=== PATIENT | female | born 1975 | race Caucasian/White ===

== ENCOUNTER → 2020-03-23 10:47 | Outpatient (BNVA) | payer OTHER, SELFPAY | PROVIDERS: PCP Internal Medicine; Referring Provider Internal Medicine; Visit Provider Internal Medicine Gastroenterology | DX: D50.0 Iron deficiency anemia secondary to blood loss (chronic) (principal); K92.2 Gastrointestinal hemorrhage, unspecified | CPT/HCPCS: 99203 ==

== ENCOUNTER 2020-05-16 12:17 | Outpatient (REF) | payer OTHER, MEDICAID, SELFPAY | END 2020-05-16 12:18 | disposition home or self-care (01) | LOC: HO.LAB 12:17 | PROVIDERS: Visit Provider Internal Medicine | DX: Z20.828 Contact with and (suspected) exposure to other viral communicable diseases (principal) | CPT/HCPCS: C9803; U0003 ==

== ENCOUNTER 2020-05-28 10:35 | Day surgery (SDC) | payer OTHER, SELFPAY ==
[2020-05-21 20:21] VITALS: BMI 33.0
--- NOTE | 2020-05-25 13:56 | HO.ANESPROP2 ---
Documented by User: Sloane Hutchins 05/25/20 13:57 HPI - Anesthesia Eval Consult details Narrative: 44yo F for Upper Endoscopy and Colonoscopy PMFSH Past Medical History Medical History (Updated 05/25/20 @ 13:56 by Sloane Hutchins) Anemia Anxiety Depression History of diabetes mellitus, type II History of kidney stones Moderate asthma Sleep apnea with use of continuous positive airway pressure (CPAP) Family History Family History Father No problems noted. Mother No problems noted. Surgical History Surgical History H/O colposcopy with cervical biopsy History of History of colonoscopy Hx of endoscopy Hx of gastric bypass Social History Social History (Updated 03/23/20 @ 11:03 by Shantelle Herrera MA) Alcohol intake: never Smoking Status: Current every day smoker Cigarettes Per Day: 5 Patient Interested in Nicotine Replacement: No Use of substances other than those prescribed or required for medical reasons: No Advance Directives: Yes Advance Directives Information Provided: Yes Advance Directives on File: No (will bring copy) Advance Directives Date on File: 11/07/19 Meds Allergies Allergy/AdvReac Type Severity Reaction Status Date / Time No Known Allergies Allergy Verified 05/21/20 20:29 Home Medications Medication Instructions Recorded Confirmed Type hydroxyzine HCl 25 mg tablet 50 mg PO BEDTIME PRN 04/26/20 05/21/20 History sertraline 100 mg tablet 100 mg PO DAILY 04/26/20 05/21/20 History Exam Exam Date and Time: May 25, 2020 1356 Height,Weight and Vital Signs: Height 5 ft Weight 76.657 kg Pertinent Lab Results Pertinent Lab Results: Laboratory Tests 02/01/20 02/01/20 09:45 09:45 WBC 7.7 Hgb 8.5 L Hct 30.8 L Plt Count 262 Sodium 138 Potassium 4.6 Chloride 105 BUN 13 Creatinine 0.75 Assessment and Plan Assessment Anesthesia Assessment: Chart Reviewed Documented by User: Sanjana Wilson 05/28/20 11:07 PMFSH Past Medical History Medical History (Updated 05/25/20 @ 13:56 by Sloane Hutchins) Anemia Anxiety Depression History of diabetes mellitus, type II History of kidney stones Moderate asthma Sleep apnea with use of continuous positive airway pressure (CPAP) Family History Family History Father No problems noted. Mother No problems noted. Surgical History Surgical History H/O colposcopy with cervical biopsy History of History of colonoscopy Hx of endoscopy Hx of gastric bypass Social History Social History (Updated 03/23/20 @ 11:03 by Shantelle Herrera MA) Alcohol intake: never Smoking Status: Current every day smoker Cigarettes Per Day: 5 Patient Interested in Nicotine Replacement: No Use of substances other than those prescribed or required for medical reasons: No Advance Directives: Yes Advance Directives Information Provided: Yes Advance Directives on File: No (will bring copy) Advance Directives Date on File: 11/07/19 Meds Allergies Allergy/AdvReac Type Severity Reaction Status Date / Time No Known Allergies Allergy Verified 05/21/20 20:29 Home Medications Medication Instructions Recorded Confirmed Type hydroxyzine HCl 25 mg tablet 50 mg PO BEDTIME PRN 04/26/20 05/21/20 History sertraline 100 mg tablet 100 mg PO DAILY 04/26/20 05/21/20 History Exam Airway Mallampati Class: II (Kadeem ring present on left requests toleave in aware of possible trama) TM Dist: >3cm Neck ROM: Full Heart: RRR Lungs: CTA Bl Assessment and Plan Assessment Anesthesia Assessment: Anesthesia Plan Discussed and Chart Reviewed Final Anesthetic Review NPO: Yes ASA Class: II Final Preanesthetic Review: Meds/Allgs Chart Reviewed and Consent Obtained/Reviewed Patient Risk: Intermediate Procedure Risk: Intermediate Anesthetic Plan Anesthetic Plan: MAC: Disposition: Standard PACU
[2020-05-28 11:01] VITALS: BP 133/86; PULSE 81; RESP 16; TEMP 36.3; O2SAT 98
[2020-05-28 11:01] LABS: UPreg QC Valid YES; Urine Pregnancy NEGATIVE (NEGATIVE)
[2020-05-28] MEDS: Lactated Ringers 1,000 ML 100 ML IVCONT (11:03)
--- NOTE | 2020-05-28 11:10 | MHC.SHP ---
Pre-Procedural Eval Section B Chief Complaint: Iron Deficeiency anemia, Altered bowel habits Relevant Family History (Specify if Yes): No Relevant Social History: Tobacco Use Present Medications: see Short Stay Collaborative assessment Medical History: Significant History (Anemia Anxiety Depression History of diabetes mellitus, type II History of kidney stones Moderate asthma Sleep apnea with use of continuous positive airway pressure (CPAP)) History of Previous Operations: Relevant previous surgery/procedure and date(s) (gastric bypass) Allergies: Allergies Allergy/AdvReac Type Severity Reaction Status Date / Time No Known Allergies Allergy Verified 05/21/20 20:29 Review of Systems Sugical H&P ROS: Negative: Constitution, Cardiovascular, Respiratory, Neurological, Psychiatric, Hem-Onc, Allergic/Immunologic, Gastrointestinal, Genitourinary, Musculoskeletal, Integumentary, Endocrine and Eyes/Ears/Nose/Throat Exam Surgical H&P Exam: Normal: HEENT, Normal: Heart, Normal: Lungs, Normal: Extremities, Normal: Abdomen, Normal: Skin and Normal: Neurological Plan Diagnosis/Plan: Unchanged I have reviewed the history and physical and performed a pertinent physical examination on my patient. No changes have occurred unless specified.
--- NOTE | 2020-05-28 11:11 | PM.OP ---
Brief Operative Note Date of Service: 05/28/20 Procedure: Operative Information Procedure Description: EGD, Colonoscopy FLEXIBLE TRANSORAL UPPER GASTROINTESTINAL ENDOSCOPY AND COLONOSCOPY PROCEDURE NOTE UPPER ENDOSCOPY Consent: Indications for the procedure and potential complications of bleeding, perforation, reaction to medications and missed diagnosis were discussed with the patient and informed consent was obtained. Instrument: Olympus GIF H 190 J mid size upper endoscope Monitoring: Vital signs and clinical assessment, continuous EKG monitoring, Pulse oximetry, Carbon Dioxide monitoring and blood pressure monitoring were done throughout the procedure. Procedure: The patient was placed in the left lateral decubitis position and pre-procedure medications were administered and a bite block was placed. The endoscope was inserted into the mouth and advanced under direct vision to the third part of duodenum. A careful inspection was made as the upper endoscope was withdrawn including a retroflexed examination of the proximal stomach; Findings and interventions are described below. Findings: Larynx:normal Esophagus: GE junction at 35 cm, diaphragm hiatus at 37 cm, consistent with 2 cm sliding hiatal hernia, LA grade A esophagitis noted at GEJ Stomach pouch: Normal mucosa. Biopsies were obtained. Grade 2 flap valve on retroflexed examination of the cardia. Jejunum: abnormal gastro jejunal anastomosis with deep ulcer about 1 cm noted with surrounding induration and erythema and friability, no active bleeding or vessel seen, bx taken from jejunum Intervention: Biopsies as noted above COLONOSCOPY Instrument: Olympus variable stiffness pediatric scope 190L Colonoscopy Monitoring: Vital signs and clinical assessment, continuous EKG monitoring, Pulse oximetry, Carbon Dioxide monitoring and blood pressure monitoring were done throughout the procedure. Colon withdrawal time was 12 minutes. Procedure: The patient was placed in the left lateral decubitis position and pre-procedure medications were administered. After a digital rectal examination of the ano-rectum, the video colonoscope was inserted into the rectum and advanced through the colon to the cecum/TI. The colonoscope was slowly withdrawn in a retrograde panoramic fashion and the colon mucosa was carefully examined including a retroflexed view of the rectum. Findings and interventions are described below. Procedure Difficulty:easy Findings: Terminal Ileum-normal Cecum:normal Ascending Colon: normal Transverse Colon -normal Descending Colon:normal Sigmoid Colon: normal Rectum: Retroflexion with small internal internal hemorrhoids, grade I Anorectum - normal Colon preparation: Pixley Bowel Preparation Scale Right colon; 1 Transverse colon: 2 Left colon; 1 (0 = Unprepared colon segment with mucosa not seen due to solid stool that cannot be cleared. 1 = Portion of mucosa of the colon segment seen, but other areas of the colon segment not well seen due to staining, residual stool and/or opaque liquid. 2 = Minor amount of residual staining, small fragments of stool and/or opaque liquid, but mucosa of colon segment seen well. 3 = Entire mucosa of colon segment seen well with no residual staining, small fragments of stool or opaque liquid) Impression and Post Procedure Diagnosis: Endoscopy Findings: marginal ulcer esophagitis hiatal hernia Colonoscopy Findings: internal hemorrhoids Plan: Await Pathology results Repeat Colonoscopy in 2 years or earlier if clinically indicated High fiber diet leaflet avoid straining at stool, epsom salts and sitz bath, anusol supps or cream prn high dose PPI omeprazoel capsule 40 mg BID--open capsule and mix with apple sauce also carafate needs to stop smoking, check NSAID hx Above findings were reviewed with the patient and relevant handouts were provided if indicated. Surgeon: Maddison Maurice MD Estimated blood loss (mL): 0
[2020-05-28 11:44] VITALS: BP 84/41; PULSE 63; RESP 24; TEMP 36.5; O2SAT 100
[2020-05-28 11:49] VITALS: BP 100/66; PULSE 71; RESP 17; O2SAT 100
[2020-05-28 11:59] VITALS: BP 108/67; PULSE 60; RESP 20; TEMP 36.5; O2SAT 99
== END 2020-05-28 13:10 | disposition home or self-care (01) ==
PROVIDERS: Nurse Practitioner; Visit Provider Internal Medicine Gastroenterology
PROC: (CPT 45378; principal; 2020-05-28 12:00)
DX: D50.0 Iron deficiency anemia secondary to blood loss (chronic) (principal); R19.4 Change in bowel habit; K64.0 First degree hemorrhoids; K28.9 Gastrojejunal ulcer, unspecified as acute or chronic, without hemorrhage or perforation; K44.9 Diaphragmatic hernia without obstruction or gangrene; K20.90 Esophagitis, unspecified without bleeding; J45.909 Unspecified asthma, uncomplicated; F32.9 Major depressive disorder, single episode, unspecified; E11.9 Type 2 diabetes mellitus without complications; G47.33 Obstructive sleep apnea (adult) (pediatric); Z99.89 Dependence on other enabling machines and devices; Z98.84 Bariatric surgery status; Z98.0 Intestinal bypass and anastomosis status; F17.210 Nicotine dependence, cigarettes, uncomplicated
CPT/HCPCS: 45378; 43239; 81025; 88305; 88342

== ENCOUNTER 2020-06-15 08:56 | Outpatient (REF) | payer OTHER, SELFPAY ==
[2020-06-15 11:00] LABS: Hematocrit 27.5 % (37-47); Mean Corpuscular HGB Conc 25.8 g/dl (31.0-35.0); Mean Corpuscular Hemoglobin 14.2 pg (27.0-33.0); PLT CLUMP 1; Red Blood Count 4.99 X10*6/uL (4.20-5.50); Red Cell Distribution Width 23.7 % (11.0-16.0)
[2020-06-15 11:19] LABS: Alanine Aminotransferase 14 U/L (0-31); Albumin Level 4.4 g/dL (3.5-5.0); Alkaline Phosphatase 86 U/L (39-117); Anion Gap 11 (12-20); Aspartate Amino Transferase 15 U/L (5-31); Bilirubin Total 0.4 mg/dL (0.0-1.0); Blood Urea Nitrogen 13 mg/dL (9-16); Calcium 8.6 mg/dL (8.4-10.2); Carbon Dioxide 27 mmol/L (22-29); Chloride 103 mmol/L (96-108); Estimated Glomerular Filt Rate > 60; Glucose Random 90 mg/dL (60-115); Potassium 4.4 mmol/l (3.3-5.1); Sodium 137 mmol/L (135-145)
[2020-06-15 11:37] LABS: Mean Corpuscular Volume 55.1 fL (80-98)
[2020-06-15 11:38] LABS: PLT ABN DIST 1; Platelet Count 316 X10*3/uL (160-400); White Blood Count 8.8 X10*3/uL (4.8-10.8)
[2020-06-15 11:40] LABS: Hemoglobin 7.1 g/dl (12.0-16.0)
[2020-06-15 11:48] LABS: Vitamin B12 388 pg/mL (200-900)
[2020-06-15 13:20] LABS: Ferritin 1 ng/mL (10-250)
[2020-06-18 01:02] LABS: Transglutaminase Ab IgG 1 U/mL; Transglutaminase IgA 1 U/mL
[2020-06-18 13:37] LABS: Transferrin 434 mg/dL (188-341)
== END 2020-06-15 08:57 | disposition home or self-care (01) ==
LOC: HO.LAB 08:56
PROVIDERS: PCP Internal Medicine; Visit Provider Internal Medicine Gastroenterology
DX: D50.0 Iron deficiency anemia secondary to blood loss (chronic) (principal)
CPT/HCPCS: 36415; 80053; 82607; 82728; 83516; 84466; 85027; 85060; 99212

== ENCOUNTER 2020-06-21 12:38 | Outpatient (REF) | payer OTHER, SELFPAY | END 2020-06-21 12:39 | disposition home or self-care (01) | LOC: HO.MDS 12:38 | PROVIDERS: Visit Provider Internal Medicine Gastroenterology | DX: D50.9 Iron deficiency anemia, unspecified (principal) | CPT/HCPCS: 96365; J2916 ==

== ENCOUNTER 2020-06-29 11:11 | Outpatient (REF) | payer OTHER, SELFPAY | END 2020-06-29 11:12 | disposition home or self-care (01) | LOC: HO.MDS 11:11 | PROVIDERS: PCP Internal Medicine; Visit Provider Internal Medicine Gastroenterology | DX: D50.9 Iron deficiency anemia, unspecified (principal) | CPT/HCPCS: 96365; J2916 ==

== ENCOUNTER 2020-07-02 11:21 | Outpatient (REF) | payer OTHER, SELFPAY | END 2020-07-02 11:22 | disposition home or self-care (01) | LOC: HO.MDS 11:21 | PROVIDERS: PCP Internal Medicine; Visit Provider Internal Medicine Gastroenterology | DX: D50.9 Iron deficiency anemia, unspecified (principal) | CPT/HCPCS: 96365; J2916 ==

== ENCOUNTER 2020-07-09 10:26 | Outpatient (REF) | payer OTHER, SELFPAY | END 2020-07-09 10:27 | disposition home or self-care (01) | LOC: HO.MDS 10:26 | PROVIDERS: PCP Internal Medicine; Visit Provider Internal Medicine Gastroenterology | DX: D50.9 Iron deficiency anemia, unspecified (principal) | CPT/HCPCS: 96365; J2916 ==

== ENCOUNTER 2020-07-16 09:31 | Outpatient (REF) | payer OTHER, SELFPAY | END 2020-07-16 09:32 | disposition home or self-care (01) | LOC: HO.MDS 09:31 | PROVIDERS: PCP Internal Medicine; Visit Provider Internal Medicine Gastroenterology | DX: D50.9 Iron deficiency anemia, unspecified (principal) | CPT/HCPCS: 96365; J2916 ==

== ENCOUNTER 2020-07-24 10:30 | Outpatient (REF) | payer OTHER, SELFPAY ==
[2020-07-24 11:02] LABS: MANUAL DIFF FLAG NO
[2020-07-24 11:32] LABS: Iron 101 mcg/dL (30-160); Percent Iron Saturation 23 % (15-50); Total Iron Binding Capacity 433 mcg/dL (228-428); Unsaturated Iron Binding 332 ug/dL
[2020-07-24 11:38] LABS: Basophils Absolute Auto 0.1 X10*3/uL (0.0-0.2); Basophils Percent Auto 0.9 % (0-2); Eosinophils Absolute Auto 0.3 X10*3/uL (0.0-0.4); Eosinophils Percent Auto 5.1 % (0-4); Hematocrit 40.3 % (37-47); Hemoglobin 11.4 g/dl (12.0-16.0); Imm Gran Abs Auto 0.02 X10*3/uL (0.00-0.03); Imm Gran Pct Auto 0.4 % (0.0-0.4); Immature Retic Fraction 5.5 % (3.0-15.9); Lymphocytes Absolute Auto 1.2 X10*3/uL (1.2-4.9); Lymphocytes Percent Auto 21.2 % (20-40); Mean Corpuscular HGB Conc 28.3 g/dl (31.0-35.0); Mean Corpuscular Hemoglobin 18.4 pg (27.0-33.0); Mean Corpuscular Volume 65.2 fL (80-98); Monocytes Absolute Auto 0.4 X10*3/uL (0.1-1.2); Monocytes Percent Auto 6.4 % (2-11); Neutrophils Absolute Auto 3.6 X10*3/uL (2.0-8.3); Platelet Count 224 X10*3/uL (160-400); Retic HGB Equivalent 24.4 pg (30.0-35.0); White Blood Count 5.5 X10*3/uL (4.8-10.8)
[2020-07-24 11:43] LABS: Red Blood Count 6.18 X10*6/uL (4.20-5.50)
[2020-07-24 11:54] LABS: Ferritin 50 ng/mL (10-250)
[2020-07-25 12:07] LABS: Transglutaminase Ab IgG 2 U/mL
== END 2020-07-24 10:31 | disposition home or self-care (01) ==
LOC: HO.MDS 10:30
PROVIDERS: PCP Internal Medicine; Visit Provider Internal Medicine Gastroenterology
DX: D50.9 Iron deficiency anemia, unspecified (principal)
CPT/HCPCS: 36415; 82728; 83516; 83540; 85025; 85045; 96365; J2916

== ENCOUNTER 2020-07-30 10:31 | Outpatient (REF) | payer OTHER, SELFPAY | END 2020-07-30 10:32 | disposition home or self-care (01) | LOC: HO.MDS 10:31 | PROVIDERS: PCP Internal Medicine; Visit Provider Internal Medicine Gastroenterology | DX: D50.9 Iron deficiency anemia, unspecified (principal) | CPT/HCPCS: 96365; J2916 ==

== ENCOUNTER 2020-07-31 12:55 | Outpatient (REF) | payer OTHER, SELFPAY ==
--- NOTE | ~2020-07-31 | US_ITS ---
EXAMINATION: US PELVIS COMPLETE CLINICAL INFORMATION: Uterine mass; the last menstrual period was on 07/28/2020. COMPARISON: None. TECHNIQUE: Transabdominal and transvaginal imaging were performed. FINDINGS: The uterus is of normal size and echogenicity measuring 9.1 x 5.7 x 6.7 cm. The uterus is anteverted and anteflexed. A regular, homogeneous endometrium is identified measuring 0.4 cm. Nabothian cysts are seen within the cervix. FIBROIDS: There are 2 fibroids seen. 1. Location: Posterior fundus, myometrial. Size: 2.1 x 1.8 x 1.7 cm. Fibroid characteristics: Heterogeneously hypoechoic. 2. Location: Posterior body, myometrial. Size: 1.1 x 0.7 x 0.9 cm. Fibroid characteristics: Hypoechoic. Both ovaries are of normal size and echogenicity. The right measures 3.2 x 1.6 x 2.1 cm for a volume of 5.7 mL. The left measures 4.8 x 3.0 x 3.9 cm for a volume of 40.7 mL. The left ovary contains a 4.5 x 2.5 x 3.3 cm simple cyst. There is normal Doppler flow to the left ovary. There is no pelvic free fluid. No adnexal mass is seen. US/US pelvic complete IMPRESSION: 1. A 4.5 cm in maximal diameter simple left ovarian cyst is seen. Recommend continued Gynecology evaluation and management. 2. There are small uterine fibroids. 3. There are Nabothian cysts within the cervix.
--- NOTE | ~2020-07-31 | US_ITS ---
EXAMINATION: US PELVIS COMPLETE CLINICAL INFORMATION: Uterine mass; the last menstrual period was on 07/28/2020. COMPARISON: None. TECHNIQUE: Transabdominal and transvaginal imaging were performed. FINDINGS: The uterus is of normal size and echogenicity measuring 9.1 x 5.7 x 6.7 cm. The uterus is anteverted and anteflexed. A regular, homogeneous endometrium is identified measuring 0.4 cm. Nabothian cysts are seen within the cervix. FIBROIDS: There are 2 fibroids seen. 1. Location: Posterior fundus, myometrial. Size: 2.1 x 1.8 x 1.7 cm. Fibroid characteristics: Heterogeneously hypoechoic. 2. Location: Posterior body, myometrial. Size: 1.1 x 0.7 x 0.9 cm. Fibroid characteristics: Hypoechoic. Both ovaries are of normal size and echogenicity. The right measures 3.2 x 1.6 x 2.1 cm for a volume of 5.7 mL. The left measures 4.8 x 3.0 x 3.9 cm for a volume of 40.7 mL. The left ovary contains a 4.5 x 2.5 x 3.3 cm simple cyst. There is normal Doppler flow to the left ovary. There is no pelvic free fluid. No adnexal mass is seen. US/US transvaginal IMPRESSION: 1. A 4.5 cm in maximal diameter simple left ovarian cyst is seen. Recommend continued Gynecology evaluation and management. 2. There are small uterine fibroids. 3. There are Nabothian cysts within the cervix.
== END 2020-07-31 12:56 | disposition home or self-care (01) ==
LOC: HO.US 12:55
PROVIDERS: PCP Internal Medicine; Visit Provider Internal Medicine
DX: N85.8 Other specified noninflammatory disorders of uterus (principal)
CPT/HCPCS: 76830; 76856

== ENCOUNTER 2020-08-13 10:06 | Outpatient (REF) | payer OTHER, SELFPAY | END 2020-08-13 10:07 | disposition home or self-care (01) | LOC: HO.MDS 10:06 | PROVIDERS: PCP Internal Medicine; Visit Provider Internal Medicine Gastroenterology | DX: D50.9 Iron deficiency anemia, unspecified (principal) | CPT/HCPCS: 96365; J2916 ==

== ENCOUNTER 2020-09-07 12:09 | Outpatient (REF) | payer OTHER, SELFPAY ==
[2020-09-07 13:03] LABS: Hematocrit 39.8 % (37-47); Hemoglobin 11.8 g/dl (12.0-16.0); Mean Corpuscular HGB Conc 29.6 g/dl (31.0-35.0); Mean Corpuscular Volume 70.9 fL (80-98); Platelet Count 232 X10*3/uL (160-400); Red Blood Count 5.61 X10*6/uL (4.20-5.50); White Blood Count 6.9 X10*3/uL (4.8-10.8)
[2020-09-07 13:17] LABS: PLT ABN DIST 1
== END 2020-09-07 12:10 | disposition home or self-care (01) ==
LOC: HO.LAB 12:09
PROVIDERS: PCP Internal Medicine; Visit Provider Internal Medicine Gastroenterology
DX: D50.0 Iron deficiency anemia secondary to blood loss (chronic) (principal)
CPT/HCPCS: 36415; 85027

== ENCOUNTER → 2020-10-12 09:52 | Outpatient (BNVA) | payer OTHER, SELFPAY | PROVIDERS: PCP Internal Medicine; Visit Provider Internal Medicine Gastroenterology ==

== ENCOUNTER 2020-12-19 07:42 | Day surgery (SDC) | payer OTHER, SELFPAY ==
[2020-12-14 13:41] VITALS: BMI 33.0
--- NOTE | 2020-12-18 10:44 | HO.ANESPROP2 ---
Documented by User: Sloane Hutchins 12/18/20 10:47 HPI - Anesthesia Eval Consult details Narrative: 45yo F for Upper Endoscopy s/p EGD and [place] 05/2020 showed anastom ulcer, repeat EGD to check healing h/o gastric bypass 2017 [facility] Active Problems Active Problems: All Active Problems (Updated 08/01/20 @ 16:27 by Lashon Quiñonez MD) Iron deficiency anemia due to chronic blood loss (Chronic) Uterine mass (Acute) Moderate asthma (Acute) Past Medical History Medical History Anemia Anxiety Depression History of diabetes mellitus, type II History of kidney stones Moderate asthma Sleep apnea with use of continuous positive airway pressure (CPAP) Uterine mass Family History Family History Father Alive and well Mother History of heart attack History of kidney cancer Surgical History Surgical History H/O colposcopy with cervical biopsy History of History of colonoscopy Hx of endoscopy Hx of gastric bypass Social History Social History Alcohol intake: never Patient Tobacco Use Status: Current everyday Tobacco user Advance Directives: No Advance Directives Information Provided: Yes Advance Directives Date on File: 11/07/19 Meds Allergies Allergy/AdvReac Type Severity Reaction Status Date / Time No Known Allergies Allergy Verified 10/12/20 09:53 Home Medications Medication Instructions Recorded Confirmed Last Taken Type doxepin 10 mg capsule 20 mg PO BEDTIME 10/12/20 12/14/20 Unknown History Exam Exam Date and Time: December 18, 2020 1044 Height,Weight and Vital Signs: Height 5 ft Weight 76.657 kg Pertinent Lab Results Pertinent Lab Results: Laboratory Tests 09/27/20 09/27/20 15:45 15:45 WBC 8.1 Hgb 11.3 L Hct 36.5 L Plt Count 223 Sodium 140 Potassium 3.7 Chloride 106 Carbon Dioxide 26 BUN 10 Creatinine 0.69 Assessment and Plan Assessment Anesthesia Assessment: Chart Reviewed Documented by User: Aminta Olsen 12/19/20 08:17 PMFSH Past Medical History Medical History Anemia Anxiety Depression History of diabetes mellitus, type II History of kidney stones Moderate asthma Sleep apnea with use of continuous positive airway pressure (CPAP) Uterine mass Family History Family History Father Alive and well Mother History of heart attack History of kidney cancer Surgical History Surgical History H/O colposcopy with cervical biopsy History of History of colonoscopy Hx of endoscopy Hx of gastric bypass Social History Social History Alcohol intake: never Patient Tobacco Use Status: Current everyday Tobacco user Advance Directives: No Advance Directives Information Provided: Yes Advance Directives Date on File: 11/07/19 Meds Allergies Allergy/AdvReac Type Severity Reaction Status Date / Time No Known Allergies Allergy Verified 10/12/20 09:53 Home Medications Medication Instructions Recorded Confirmed Last Taken Type doxepin 10 mg capsule 20 mg PO BEDTIME 10/12/20 12/14/20 Unknown History Exam Airway Mallampati Class: II TM Dist: >3cm Neck ROM: Full Assessment and Plan Assessment Anesthesia Assessment: Anesthesia Plan Discussed and Chart Reviewed Final Anesthetic Review NPO: Yes ASA Class: II Final Preanesthetic Review: No Changes in Pt Med Stat, Meds/Allgs Chart Reviewed, Consent Obtained/Reviewed and Anes Risks/Benef Reviewed Patient Risk: Low Procedure Risk: Low Assessment/Block/Sedation in SS: Assess/Block/Sedation-SS Anesthetic Plan Anesthetic Plan: MAC: Disposition: Standard PACU
[2020-12-19 08:01] VITALS: BP 132/85; PULSE 65; RESP 16; TEMP 36.6; O2SAT 99
[2020-12-19 08:08] LABS: UPreg QC Valid YES; Urine Pregnancy NEGATIVE (NEGATIVE)
[2020-12-19] MEDS: Lactated Ringers 1,000 ML 100 ML IVCONT (08:23)
[2020-12-19 08:33] LABS: Glucose, Whole Blood 87 mg/dL (60-115)
--- NOTE | 2020-12-19 08:33 | P.HPSUR_ITS ---
Pre-Procedural Eval Section A Date of Service: 12/19/20 Section B Chief Complaint: Iron Deficiency Anemia Relevant Family History (Specify if Yes): No Relevant Social History: Tobacco Use Present Medications: see Short Stay Collaborative assessment Medical History: Significant History (Anemia Anxiety Depression History of diabetes mellitus, type II History of kidney stones Moderate asthma Sleep apnea with use of continuous positive airway pressure (CPAP) Uterine mass) History of Previous Operations: Relevant previous surgery/procedure and date(s) (H/O colposcopy with cervical biopsy History of History of colonoscopy Hx of endoscopy Hx of gastric bypass) Allergies: Allergies Allergy/AdvReac Type Severity Reaction Status Date / Time No Known Allergies Allergy Verified 10/12/20 09:53 Review of Systems Sugical H&P ROS: Negative: Constitution, Cardiovascular, Respiratory, Neurological, Psychiatric, Hem-Onc, Allergic/Immunologic, Gastrointestinal, Genitourinary, Musculoskeletal, Integumentary, Endocrine and Eyes/Ears /Nose/Throat Exam Surgical H&P Exam: Normal: HEENT, Normal: Heart, Normal: Lungs, Normal: Extremities, Normal: Abdomen, Normal: Skin and Normal: Neurological Plan Diagnosis/Plan: Unchanged I have reviewed the history and physical and performed a pertinent physical examination on my patient. No changes have occurred unless specified.
--- NOTE | 2020-12-19 09:26 | P.BOP_ITS ---
Brief Operative Note Date of Service: 12/19/20 Pre-op diagnosis: abdo pain Post-op diagnosis: same Procedure: see op note Surgeon: Maddison Maurice MD Anesthesia: MAC Was an Certified Marine Mechanic used for this Procedure?: No Estimated blood loss (mL): 0 Condition: stable Disposition: PACU
--- NOTE | 2020-12-19 09:27 | W.PM.OPN ---
Operative Note Operative Note Date of Service: 12/19/20 Narrative: Procedure Description: EGD FLEXIBLE TRANSORAL UPPER GASTROINTESTINAL ENDOSCOPY UPPER ENDOSCOPY Consent: Indications for the procedure and potential complications of bleeding, perforation, reaction to medications and missed diagnosis were discussed with the patient and informed consent was obtained. Instrument: Olympus GIF H 190 J mid size upper endoscope Monitoring: Vital signs and clinical assessment, continuous EKG monitoring, Pulse oximetry, Carbon Dioxide monitoring and blood pressure monitoring were done throughout the procedure. Procedure: The patient was placed in the left lateral decubitis position and pre-procedure medications were administered and a bite block was placed. The endoscope was inserted into the mouth and advanced under direct vision to the third part of duodenum. A careful inspection was made as the upper endoscope was withdrawn including a retroflexed examination of the proximal stomach; Findings and interventions are described below. Hx of gastric bypass Findings: Larynx:normal Esophagus: GE junction at 35 cm, diaphragm hiatus at 37 cm, consistent with 2 cm sliding hiatal hernia, mild esophagitis noted with islands of salmon pink tissue suggestive of barretts mucosa-bx taken Stomach pouch: Patchy gastric erythema. Biopsies were obtained. Grade 2 flap valve on retroflexed examination of the cardia. Jejunum: normal, bx taken Intervention: Biopsies as noted above Impression/Findings: esophagitis hiatal hernia suspected barretts esophagus PLAN: await bx results if neg and ongoing sx then further w/u, if not tried bentyl may give it a shot
[2020-12-19 09:32] VITALS: BP 92/55; PULSE 62; RESP 16; TEMP 36.4; O2SAT 96
[2020-12-19 09:47] VITALS: BP 124/78; PULSE 66; RESP 17; TEMP 36.4; O2SAT 100
== END 2020-12-19 10:30 | disposition home or self-care (01) ==
PROVIDERS: Nurse Practitioner; PCP Internal Medicine; Visit Provider Internal Medicine Gastroenterology
PROC: 0DJ08ZZ Inspection of Upper Intestinal Tract, Via Natural or Artificial Opening Endoscopic (ICD-10-PCS; CPT 43235; principal; 2020-12-19 08:40)
DX: D50.0 Iron deficiency anemia secondary to blood loss (chronic) (principal); K44.9 Diaphragmatic hernia without obstruction or gangrene; K20.80 Other esophagitis without bleeding; Z98.84 Bariatric surgery status; E11.9 Type 2 diabetes mellitus without complications; J45.40 Moderate persistent asthma, uncomplicated; G47.33 Obstructive sleep apnea (adult) (pediatric); F32.9 Major depressive disorder, single episode, unspecified; Z79.899 Other long term (current) drug therapy; Z99.89 Dependence on other enabling machines and devices; Z87.442 Personal history of urinary calculi; F17.210 Nicotine dependence, cigarettes, uncomplicated
CPT/HCPCS: 43239; 81025; 82947; 88305; 88342; J3010

== ENCOUNTER → 2021-01-08 15:35 | Outpatient (BNVA) | payer OTHER, SELFPAY | PROVIDERS: PCP Internal Medicine; Visit Provider Internal Medicine Gastroenterology ==

== ENCOUNTER → 2021-10-28 10:29 | Outpatient (BNVA) | payer OTHER, SELFPAY | PROVIDERS: PCP Internal Medicine; Visit Provider Internal Medicine Gastroenterology | DX: Z13.89 Encounter for screening for other disorder (principal) ==

== ENCOUNTER → 2024-02-16 10:26 | Outpatient (RCR) | payer OTHER, SELFPAY ==
[2020-07-31 15:14] VITALS: BP 116/73; PULSE 68; RESP 12; TEMP 36.6; O2SAT 99; BMI 32.9
--- NOTE | 2020-07-31 16:13 | P.CNHO_ITS ---
Subjective - Subjective Chief complaint: Anemia Patient: new to practice Consult date: 07/31/20 Primary Care Provider: Keerthi Goodwin MD HPI - Consult Narrative Reason for consult: Iron deficiency anemia Narrative: Tootie Wallace is a 45 year old female referred for evaluation of recurrent iron deficiency anemia. This started in June of 2019 when she was noted to have hemoglobin around 6 or 7 gram/dL. She received blood transfusion. She underwent both upper and lower endoscopy, she did not have any obvious source of GI bleeding. She did have a gastric ulcer that was biopsied and treated. She underwent another transfusion earlier this year for recurrent anemia. She denies any obvious hematochezia or melena. She is taking oral iron supplementation and she is also receiving weekly Ferrlecit. She was not told of this severe anemia during her pregnancies. She does not have any excessive menstrual blood losses. She denies any fever, chills, night sweats or unexplained weight loss. Review of Systems - Constitutional Reports as per HPI, Reports no additional constitutional complaints - Cardiovascular Reports no additional cardiovascular complaints - Respiratory Reports no additional respiratory complaints - Gastrointestinal Reports no additional gastrointestinal complaints Oncology Screenings - ECOG Performance Status ECOG Performance Status: 1 [facility] Medical History: Medical History (Last Updated 07/11/20 @ 14:56 by Keerthi Goodwin MD) Anemia Anxiety Depression History of diabetes mellitus, type II History of kidney stones Moderate asthma Sleep apnea with use of continuous positive airway pressure (CPAP) Uterine mass Family History: Family History (Last Updated 06/15/20 @ 09:09 by Shantelle Herrera CMA) Father Alive and well Mother History of heart attack History of kidney cancer Surgical History: Surgical History (Last Updated 06/15/20 @ 09:07 by Shantelle Herrera CMA) H/O colposcopy with cervical biopsy History of History of colonoscopy Hx of endoscopy Hx of gastric bypass Social History: Social History (Last Reviewed 07/11/20 @ 14:52 by Keerthi Goodwin MD) Alcohol History: Alcohol intake: never Alcohol History Details: Alcohol intake frequency: holiday/special occasion Tobacco History: Tobacco Type: Cigarette Advance Directives: Advance Directives Date on File: 11/07/19 Home Medications and Allergies Allergies Allergy/AdvReac Type Severity Reaction Status Date / Time No Known Allergies Allergy Verified 07/11/20 14:50 Physical Exam Vital signs: Vital Signs Temp 97.8 F 07/31/20 15:14 Pulse 68 07/31/20 15:14 Resp 12 07/31/20 15:14 BP 116/73 07/31/20 15:14 Pulse Ox 99 07/31/20 15:14 Intake & Output 07/30/20 07/31/20 07/31/20 18:59 06:59 18:59 Other: Weight 76.5 kg Weight in Grams [id number] Weight 76.5 kg - Constitutional Present: no acute distress - Routine HEENT Exam Head: Present: normal inspection Eye: Present: EOMI - Routine Neck Exam Absent: lymphadenopathy - Routine Respiratory Exam Present: CTAB - Routine Cardiovascular Exam Cardiovascular: Present: S1, S2 - Routine Abdominal Exam Present: soft Hem/Onc Consult Result - Labs Labs: Laboratory Tests 02/01/20 02/01/20 06/15/20 09:45 09:45 10:20 WBC RBC Hgb Hct MCV MCH MCHC RDW Coeff of Mya 23.7 H Plt Count Absolute Retic Percent Retic Immature Retic Fraction Retic Hgb Equivalent Iron Saturation 4 L Vitamin B12 388 Tiss Transglutamin IgG Tiss Transglutamin IgA 06/15/20 07/24/20 07/24/20 10:20 10:38 10:38 WBC 5.5 RBC 6.18 H D Hgb 11.4 L D Hct 40.3 D MCV 65.2 L MCH 18.4 L MCHC 28.3 L RDW Coeff of Mya Plt Count 224 D Absolute Retic Percent Retic Immature Retic Fraction Retic Hgb Equivalent Iron Saturation Vitamin B12 Tiss Transglutamin IgG 2 Tiss Transglutamin IgA 1 07/24/20 10:38 WBC RBC Hgb Hct MCV MCH MCHC RDW Coeff of Mya Plt Count Absolute Retic 0.060 Percent Retic 1.0 Immature Retic Fraction 5.5 Retic Hgb Equivalent 24.4 L Iron Saturation Vitamin B12 Tiss Transglutamin IgG Tiss Transglutamin IgA Assessment and Plan (1) Iron deficiency anemia due to chronic blood loss Status: Chronic 1. This is a 45-year-old woman with fairly severe iron deficiency anemia, probable gastrointestinal blood losses. She has had 2 blood transfusions in the past year, she is now receiving parenteral iron therapy. She is also taking oral iron once a day and tolerating it well. Her last hemoglobin has improved from 8 g to 11 gram/dL. I have asked her to continue taking oral iron supplementation at least twice a day with vitamin-C to enhance absorption. She is on high-dose PPI to treat her peptic ulcer disease. Follow-up in 2 months.
--- NOTE | 2020-08-28 14:09 | MHC.HEMONCMA ---
Patient no-showed today's lab appt. I called both numbers in the chart and neither one of them are working numbers. Will wait to see if the patient calls back to reschedule.
[2020-09-27 15:53] LABS: Basophils Absolute Auto 0.1 X10*3/uL (0.0-0.2); Basophils Percent Auto 0.6 % (0-2); Hemoglobin 11.3 g/dl (12.0-16.0); Imm Gran Abs Auto 0.02 X10*3/uL (0.00-0.03); Lymphocytes Percent Auto 15.5 % (20-40); MANUAL DIFF FLAG SCAN; Mean Corpuscular Volume 71.9 fL (80-98); Monocytes Percent Auto 6.4 % (2-11); SCAN SMEAR FLAG 1
[2020-09-27 15:55] LABS: Eosinophils Absolute Auto 0.3 X10*3/uL (0.0-0.4); Eosinophils Percent Auto 4.1 % (0-4); Hematocrit 36.5 % (37-47); Imm Gran Pct Auto 0.2 % (0.0-0.4); Lymphocytes Absolute Auto 1.3 X10*3/uL (1.2-4.9); Mean Corpuscular Hemoglobin 22.2 pg (27.0-33.0); Monocytes Absolute Auto 0.5 X10*3/uL (0.1-1.2); Neutrophils Absolute Auto 5.9 X10*3/uL (2.0-8.3); Neutrophils Percent Auto 73.2 % (45-73); Platelet Count 223 X10*3/uL (160-400); Red Blood Count 5.08 X10*6/uL (4.20-5.50); Red Cell Distribution Width 19.3 % (11.0-16.0); White Blood Count 8.1 X10*3/uL (4.8-10.8)
[2020-09-27 16:14] LABS: PLT ABN DIST 1
[2020-09-27 16:23] LABS: Alanine Aminotransferase 11 U/L (0-31); Alkaline Phosphatase 88 U/L (39-117); Anion Gap 12 (12-20); Aspartate Amino Transferase 12 U/L (5-31); Bilirubin Total 0.4 mg/dL (0.0-1.0); Blood Urea Nitrogen 10 mg/dL (9-16); Calcium 8.8 mg/dL (8.4-10.2); Carbon Dioxide 26 mmol/L (22-29); Chloride 106 mmol/L (96-108); Estimated Glomerular Filt Rate > 60; Glucose Random 81 mg/dL (60-115); Potassium 3.7 mmol/L (3.3-5.1); Sodium 140 mmol/L (135-145); Total Protein 7.1 g/dL (6.5-8.0)
[2020-09-27 17:03] LABS: SLIDE REVIEW VERIFIED
[2021-02-08 10:24] VITALS: BP 165/94; PULSE 72; RESP 20; TEMP 36; O2SAT 100; BMI 32.9
[2021-02-08 10:33] LABS: MANUAL DIFF FLAG NO
[2021-02-08 10:47] LABS: Basophils Absolute Auto 0.1 X10*3/uL (0.0-0.2); Basophils Percent Auto 0.9 % (0-2); Eosinophils Absolute Auto 0.3 X10*3/uL (0.0-0.4); Eosinophils Percent Auto 4.3 % (0-4); Hematocrit 31.7 % (37-47); Hemoglobin 9.4 g/dl (12.0-16.0); Imm Gran Abs Auto 0.02 X10*3/uL (0.00-0.03); Imm Gran Pct Auto 0.3 % (0.0-0.4); Lymphocytes Absolute Auto 1.3 X10*3/uL (1.2-4.9); Lymphocytes Percent Auto 18.2 % (20-40); Mean Corpuscular HGB Conc 29.7 g/dl (31.0-35.0); Mean Corpuscular Hemoglobin 18.8 pg (27.0-33.0); Mean Corpuscular Volume 63.4 fL (80-98); Monocytes Absolute Auto 0.5 X10*3/uL (0.1-1.2); Monocytes Percent Auto 7.2 % (2-11); Neutrophils Absolute Auto 4.8 X10*3/uL (2.0-8.3); Neutrophils Percent Auto 69.1 % (45-73); Platelet Count 253 X10*3/uL (160-400); Red Cell Distribution Width 15.6 % (11.0-16.0)
--- NOTE | 2021-02-08 10:47 | MHC.HEMONCMA ---
Pt came in for hem follow up and states she is doing okay. clinical summary was updated and labs were drawn. pt will be in 6 months for follow up on 08/09/2021.
[2021-02-08 10:53] LABS: Alanine Aminotransferase 10 U/L (0-31); Albumin Level 4.3 g/dL (3.5-5.0); Alkaline Phosphatase 92 U/L (39-117); Anion Gap 12 (12-20); Aspartate Amino Transferase 14 U/L (5-31); Bilirubin Total 0.6 mg/dL (0.0-1.0); Blood Urea Nitrogen 12 mg/dL (9-16); Calcium 9.2 mg/dL (8.4-10.2); Carbon Dioxide 24 mmol/L (22-29); Chloride 105 mmol/L (96-108); Creatinine Clr Calc Pharmacy 91.1; Estimated Glomerular Filt Rate > 60; Glucose Random 92 mg/dL (60-115); Iron 24 mcg/dL (30-160); Percent Iron Saturation 5 % (15-50); Potassium 4.4 mmol/L (3.3-5.1); Sodium 137 mmol/L (135-145); Total Iron Binding Capacity 509 mcg/dL (228-428); Total Protein 7.4 g/dL (6.5-8.0); Unsaturated Iron Binding 485 ug/dL
--- NOTE | 2021-08-08 13:17 | HE.ONCSEC ---
CALLED PT FOR ROUTINE REMINDER CALL . PATIENT WANTED TO CANCEL APPT I RESCHEDULED W/ PATIENT ON THE PHONE.
--- NOTE | 2021-08-20 07:41 | HO.HEMONCSCH ---
Left message letting pt know she no showed for f/u apt. N/S letter mailed
--- NOTE | 2021-08-26 11:46 | HE.ONCSEC ---
PATIENT CALLED AND STATED SHE IS HAVING TRANSPORTATION PROBLEMS AND SHE DOESN'T FEEL GOOD . I RESCHEDULED W/ PATIENT ON THE PHONE.
--- NOTE | 2021-09-13 15:29 | MHC.HEMONC ---
Patient did not arrive for her appointment today, she again was a no show. Per Dr Quiñonez and Master Chef Brooke Herrera, patient is not to be rescheduled. Brooke stated that a letter will be sent out to notify the patient.
== END | disposition home or self-care (01) ==
LOC: HO.ONC 07-31 15:02
PROVIDERS: PCP Internal Medicine; Referring Provider Internal Medicine; Visit Provider Internal Medicine
DX: D50.0 Iron deficiency anemia secondary to blood loss (chronic) (principal)
CPT/HCPCS: 36415; 80053; 83540; 85025; 99202